=== PATIENT | female | born 1970 | race Caucasian/White ===

== ENCOUNTER 2021-09-16 14:22 | Emergency (ER) | payer OTHER, SELFPAY ==
[2021-09-16 14:22] VITALS: BP 131/98; PULSE 97; RESP 20; TEMP 36.2; O2SAT 98; BMI 39.7
--- NOTE | 2021-09-16 15:12 | RAD_ITS ---
STUDY: X-RAY - SACRUM/COCCYX REASON FOR EXAM: Female, 51 years old. Low back pain following a fall. TECHNIQUE: 4 view(s) of the sacrum and coccyx were obtained. COMPARISON: None. FINDINGS: Normal bilateral sacroiliac joints. Normal visualized sacral ala and fused sacral bodies. Normal sacrococcygeal junction with a normal angulation. Normal coccygeal segments. The presacral soft tissue structures are unremarkable. RAD/Sacrum-Coccyx min 2 Views IMPRESSION: Normal x-rays of the sacrum and coccyx. Electronically Signed: J Carlos Martinez MD at 15:45 EDT ,
--- NOTE | 2021-09-16 15:14 | RAD_ITS ---
STUDY: X-RAY - LUMBAR SPINE REASON FOR EXAM: Female, 51 years old. Back pain TECHNIQUE: 3 view(s) of the lumbar spine were obtained. COMPARISON: None FINDINGS: Normal lumbar lordosis. There is no substantial scoliosis. There is a normal alignment of the vertebrae. There is multilevel endplate spondylosis of the lumbar vertebrae. There is multi-level degenerative disc disease with multi-level disc space narrowing. The soft tissue structures are unremarkable. RAD/Lumbar Spine 2 or 3 Views IMPRESSION: Degenerative changes of the spine, as detailed above. Electronically Signed: J Carlos Martinez MD at 15:49 EDT ,
--- NOTE | 2021-09-16 15:14 | ED.VIS.LOWEX ---
HPI History of Present Illness Chief Complaint: Fall Narrative Narrative: 51-year-old female presenting with pain in her sacrum and coccyx after mechanical fall backwards. She states that she is able to ambulate after this. She states that the pain radiates into her gluteal muscles bilaterally. No paresthesias. Denies head injury or LOC. [facility] Medical History Anxiety Fall HTN (hypertension) Type 2 diabetes mellitus Home Medications hydrochlorothiazide 25 mg tablet 25 mg PO DAILY 07/16/15 [History Last Taken 07/16/15] omeprazole 20 mg capsule,delayed release 20 mg PO DAILY PRN Heartburn 07/16/15 [History Last Taken Unknown] trazodone 100 mg tablet 100 mg PO QHS 07/16/15 [History Last Taken Unknown] azithromycin 250 mg tablet 250 mg PO DAILY ##4 12/23/16 [Rx Last Taken Unknown] prednisone 20 mg tablet (Deltasone) 60 mg PO DAILY ##4 12/23/16 [Rx Last Taken Unknown] hydrocodone-acetaminophen 5-325mg 5mg-325mg 1 tab PO Q6H PRN pain 3 days #12 tabs 09/16/21 [Rx Last Taken Unknown] naproxen 500 mg tablet (Naprosyn) 500 mg PO BID PRN pain #20 tabs 09/16/21 [Rx Last Taken Unknown] Allergy/AdvReac Type Severity Reaction Status Date / Time Penicillins Allergy Severe Anaphylaxis Verified 09/16/21 14:35 adhesive Allergy Rash Verified 09/16/21 14:35 latex Allergy Rash Verified 09/16/21 14:35 Social History Smoking Status: Current every day smoker tobacco type: cigarettes ROS ROS ED Constitutional Constitutional ED: Denies chills, fever(s) or sweats Eyes Eyes: Denies blurry vision or change in vision ENT ENT ED: Denies ear pain or sore throat Cardiovascular Cardiovascular: Denies chest pain, palpitations or racing heartbeat Respiratory/Chest Respiratory/Chest: Denies cough, dyspnea or sputum Gastrointestinal Gastrointestinal: Denies abdominal pain, constipation, diarrhea, nausea or vomiting Genitourinary Genitourinary ED: Denies dysuria, hematuria or urinary frequency Musculoskeletal Musculoskeletal: Reports back pain and other Details: Pain in sacrum and coccyx ; Denies myalgias or neck pain Integumentary Denies abscess, Abrasions or rash Neurologic Neurologic: Denies headache(s), paresthesias or weakness Psychiatric Psychiatric: Denies anxiety, depression, suicidal ideation or suicidal thoughts Endocrine Endocrinology: Denies polydipsia or polyuria EXAM Physical Exam Const Vital Signs: 09/16/21 14:22 Temperature 97.1 F L Temperature Source Temporal Pulse Rate 97 Respiratory Rate 20 H Blood Pressure 131/98 H Blood Pressure Mean 109 Pulse Ox 98 Positive well nourished General Appearance ED: NAD HEENT Reports moist mucous membranes Resp normal respiratory effort Cardio regular rate and regular rhythm Extremity Extremity Narrative: Bilateral lumbar paraspinal musculature pain extending into the midline sacrum and coccyx region. Patient standing on examination and does not have hip pain. Neuro oriented x3 and CN's II-XII intact bilaterally Sensorium / Orientation: alert and oriented to person Psych mental status grossly normal Skin no wounds MDM MDM MDM Narrative Medical decision making narrative: 51-year-old female presenting with pain in her sacrum and coccyx after mechanical fall. She does have tenderness here. She is ambulatory. I did give her Toradol for pain because she is driving. Going through protection of the sacrum and coccyx as well as the lumbar spine is no acute fractures. Radiologist agree. Patient given some [place] for pain at home. She also request a work note for couple of days. This was provided. Patient stable for discharge. Impression: 1. Mechanical fall 2. Sacral contusion Lab Data Attestation: I reviewed the patient's lab results. Radiography Diagnostic Testing: Clinical Impression(s) from Imaging Studies Sacrum and Coccyx X-Ray 09/16/21 15:12 IMPRESSION: Normal x-rays of the sacrum and coccyx. Electronically Signed: J Carlos Martinez MD at 15:45 EDT , Lumbar Spine X-Ray 09/16/21 15:14 IMPRESSION: Degenerative changes of the spine, as detailed above. Electronically Signed: J Carlos Martinez MD at 15:49 EDT , Discharge Plan Triage Chief Complaint: Fall ED Provider: Dwayne Garibay Dx/Rx/DC Orders Instructions: ED Coccyx or Sacrum Contusion Prescriptions: New hydrocodone-acetaminophen 5-325 mg tablet 1 tab PO Q6H PRN (Reason: pain) 3 Days Qty: 12 0RF naproxen [Naprosyn] 500 mg tablet 500 mg PO BID PRN (Reason: pain) Qty: 20 0RF No Action trazodone 100 MG tablet 100 mg PO QHS Label Comments: sleep omeprazole 20 MG capsule,delayed release(DR/EC) 20 mg PO DAILY PRN (Reason: Heartburn) Label Comments: acid reflux hydrochlorothiazide 25 MG tablet 25 mg PO DAILY Label Comments: diuretic azithromycin 250 MG tablet 250 mg PO DAILY Qty: 4 0RF prednisone [Deltasone] 20 MG tablet 60 mg PO DAILY Qty: 4 0RF Rx Instructions: With food Primary Care Provider: Kareem Perez Referrals: Kareem Perez MD [Primary Care Provider] - Disposition Disposition: Home, Self Care Discharge Date/Time: 09/16/21 16:35
[2021-09-16] MEDS: Ketorolac 15 MG/ML Vial IM (15:22)
== END 2021-09-16 16:35 | disposition home or self-care (01) ==
PROVIDERS: Emergency Provider Student in an Organized Health Care Education/Training Program; PCP Family Medicine; Visit Provider Student in an Organized Health Care Education/Training Program
DX: S30.0XXA Contusion of lower back and pelvis, initial encounter (principal); W18.30XA Fall on same level, unspecified, initial encounter; I10 Essential (primary) hypertension; F17.210 Nicotine dependence, cigarettes, uncomplicated; Z79.899 Other long term (current) drug therapy
CPT/HCPCS: 72100; 72220; 96372; 99282

== ENCOUNTER 2023-09-02 14:47 | Emergency (ER) | payer OTHER, SELFPAY ==
[2023-09-02 14:49] VITALS: BP 158/97; PULSE 89; RESP 18; TEMP 36.2; O2SAT 100; BMI 35.5
--- NOTE | 2023-09-02 15:09 | VDLE_ITS ---
Reason For Study: LLE Swelling RIGHT LEFT CFV is compressible, spontaneous, phasic, GSV is normal. competent and demonstrates normal CFV is compressible, spontaneous, phasic, augmentation. competent, and demonstrates normal Procedure augmentation. This is a venous duplex using B-mode, color FV is compressible, spontaneous, phasic, flow and spectral Doppler. competent and demonstrates normal Exam performed portable in ED. augmentation. The exam was diagnostic. POP V is compressible, spontaneous, phasic, A preliminary report was called and/or faxed competent and demonstrates normal to Dr. Kiran. augmentation. T/P Trunk is compressible. PTV is compressible. LT PerV is compressible. VL/Venous Duplex US, Unilateral Interpretation Summary There is no evidence of left lower extremity deep vein thrombosis. Left great s aphenous vein appears patent and compressible segmentally. Normal flow patterns right common femoral vein Ordering Physician: Hazel Kiran Referring Physician: Gary Chilel Performed By: Jackson Olson RVT and Student
--- NOTE | 2023-09-02 15:11 | EDS_ITS ---
HPI History of Present Illness Chief Complaint: Lower Extremity Injury Informant: patient Narrative Narrative: Patient presents with redness and swelling to her left leg. 2 days ago she noted a red band around the ankle area of her left leg. No known injury. She states her left leg is usually more swollen than the right but it does seem to be more so now. Redness is now spread up onto her [place]. [facility] Medical History HTN (hypertension) Anxiety Type 2 diabetes mellitus Fall Home Medications ?Medication ?Instructions ?Recorded ?Last Taken ?Type hydrochlorothiazide 25 mg tablet 25 mg PO DAILY 07/16/15 07/16/15 History omeprazole 20 mg capsule,delayed 20 mg PO DAILY PRN Heartburn 07/16/15 Unknown History release trazodone 100 mg tablet 100 mg PO QHS 07/16/15 Unknown History azithromycin 250 mg tablet 250 mg PO DAILY ##4 12/23/16 Unknown Rx prednisone 20 mg tablet (Deltasone) 60 mg (3 x 20 mg) PO DAILY ##4 12/23/16 Unknown Rx hydrocodone-acetaminophen 5-325mg 1 tab PO Q6H PRN pain 3 days #12 09/16/21 Unknown Rx 5mg-325mg tabs naproxen 500 mg tablet (Naprosyn) 500 mg PO BID PRN pain #20 tabs 09/16/21 Unknown Rx doxycycline monohydrate 100 mg 100 mg PO BID #20 CAPSULES 09/02/23 Unknown Rx capsule Allergy/AdvReac Type Severity Reaction Status Date / Time Penicillins Allergy Severe Anaphylaxis Verified 09/02/23 14:49 adhesive Allergy Rash Verified 09/02/23 14:49 latex Allergy Rash Verified 09/02/23 14:49 Social History Smoking Status: Current every day smoker tobacco type: cigarettes ROS ROS ED Constitutional Constitutional ED: Denies chills or fever(s) ENT ENT ED: Denies rhinorrhea or sore throat Cardiovascular Cardiovascular: Denies chest pain Respiratory/Chest Respiratory/Chest: Denies cough or dyspnea Gastrointestinal Gastrointestinal: Denies abdominal pain, nausea or vomiting Musculoskeletal Musculoskeletal: Reports extremity pain; Denies back pain Integumentary Reports rash; Denies Abrasions Neurologic Neurologic: Denies headache(s) or weakness Psychiatric Psychiatric: Denies anxiety or depression Allergic/Immunologic Allergic/Immunologic ED: Denies lip swelling or urticaria EXAM Physical Exam Const Vital Signs: 09/02/23 14:49 Temperature 97.1 F L Temperature Source Temporal Pulse Rate 89 Respiratory Rate 18 Blood Pressure 158/97 H Blood Pressure Mean 117 Pulse Ox 100 Oxygen Delivery Method Room Air Positive well nourished and well developed General Appearance ED: well developed HEENT Reports moist mucous membranes Neck supple Chest Wall inspection of chest normal and palpation of chest normal Resp normal respiratory effort and clear to auscultation bilaterally Cardio regular rate and regular rhythm GI non-tender Palpation: soft Extremity Extremity Narrative: Mild erythema noted to the lower portion of the left leg. No open wounds appreciated. 2+ edema noted on the left. Strong distal pulses. Full range of motion at all joints. Neuro oriented x3 and moves all extremities MDM MDM MDM Narrative Medical decision making narrative: Venous ultrasound obtained to evaluate for potential DVT. Treatment and Re-Evaluation Narrative: Venous ultrasound reveals no evidence of DVT. Patient does have redness with slight increased warmth and pain. She does now tell me that 2 days ago she had a fever. She will be covered with doxycycline for cellulitis. Return instructions provided. Patient comfortable with the plan. Discharge Plan Triage Chief Complaint: Lower Extremity Injury Other Complaint: Wound ED Provider: Hazel Kiran Dx/Rx/DC Orders Clinical Impression: Cellulitis Instructions: ED Cellulitis Prescriptions: New doxycycline monohydrate 100 mg capsule 100 mg PO BID Qty: 20 0RF No Action trazodone 100 MG tablet 100 mg PO QHS Patient Comments: sleep omeprazole 20 MG capsule,delayed release(DR/EC) 20 mg PO DAILY PRN (Reason: Heartburn) Patient Comments: acid reflux hydrochlorothiazide 25 MG tablet 25 mg PO DAILY Patient Comments: diuretic azithromycin 250 MG tablet 250 mg PO DAILY Qty: 4 0RF prednisone [Deltasone] 20 MG tablet 60 mg PO DAILY Qty: 4 0RF Rx Instructions: With food hydrocodone-acetaminophen 5-325 mg tablet 1 tab PO Q6H PRN (Reason: pain) 3 Days Qty: 12 0RF naproxen [Naprosyn] 500 mg tablet 500 mg PO BID PRN (Reason: pain) Qty: 20 0RF Primary Care Provider: Gary Chilel Referrals: Gary Chilel MD [Primary Care Provider] - 1-2 Weeks Print Language: Bengali Disposition Disposition: Home, Self Care
[2023-09-02] MEDS: Doxycycline 100 MG CAPSULE PO (16:15)
[2023-09-02 16:16] VITALS: BP 146/92; PULSE 84; RESP 16; TEMP 36.1; O2SAT 99
== END 2023-09-02 16:17 | disposition home or self-care (01) ==
LOC: ED 16:08
PROVIDERS: Emergency Provider Emergency Medicine; PCP Family Medicine; Visit Provider Emergency Medicine
DX: L03.116 Cellulitis of left lower limb (principal); I10 Essential (primary) hypertension; F17.210 Nicotine dependence, cigarettes, uncomplicated; Z79.899 Other long term (current) drug therapy
CPT/HCPCS: 93971; 99283